=== PATIENT | female | born 1975 | race Asian ===

== ENCOUNTER → 2020-03-25 16:34 | Outpatient (CLI) | payer OTHER, SELFPAY ==
[2020-03-25 17:47] LABS: Influenza A - CEPHEID Flu A NEGATIVE (NEGATIVE); Influenza B - CEPHEID Flu B NEGATIVE (NEGATIVE)
[2020-03-25 18:06] LABS: COVID19 -Nasal RAPID Negative (Negative)
== END ==
PROVIDERS: PCP Registered Nurse Diabetes Educator; Visit Provider Physician Assistant
DX: Z20.822 Contact with and (suspected) exposure to COVID-19 (principal); R53.83 Other fatigue; J02.9 Acute pharyngitis, unspecified; J45.901 Unspecified asthma with (acute) exacerbation
CPT/HCPCS: 87502; 87635

== ENCOUNTER → 2020-05-27 09:43 | Outpatient (CLI) | payer OTHER, SELFPAY ==
--- NOTE | 2020-05-27 10:09 | DI.RAD.S_ITS ---
PROCEDURE: XR CHEST 2V INDICATIONS: sob TECHNIQUE: 2 views of the chest were acquired. COMPARISON: None. FINDINGS: Surgical changes and devices: None. Lungs and pleura: Lungs are clear. No pleural effusions or pneumothorax. Mediastinum: Mediastinal contours are normal. Heart size is normal. Bones and chest wall: No suspicious bony abnormalities. Soft tissues appear unremarkable. IMPRESSION: No acute cardiopulmonary pathology. Dictated by: Giuseppe Merchant M.D. on 05/27/2020 at 10:50 Approved by: Giuseppe Merchant M.D. on 05/27/2020 at 10:51
[2020-05-27 10:16] LABS: Add Manual Diff / Slide Review NO; Basophils Absolute Auto 100 /uL (0-100); Basophils Percent Auto 1.3 % (0-2); Eosinophils Absolute Auto 600 /uL (0-450); Eosinophils Percent Auto 8.5 % (2-4); Hematocrit 43.3 % (36-46); Hemoglobin 14.3 g/dL (12.0-16.0); Lymphocytes Absolute Auto 1600 /uL (1100-4500); Lymphocytes Percent Auto 22.9 % (25-40); Mean Corpuscular HGB Conc 33.1 % (30-36); Mean Corpuscular Hemoglobin 29.8 PG (26-34); Monocytes Absolute Auto 600 /uL (0-900); Monocytes Percent Auto 8.4 % (3-14); Neutrophils Absolute Auto 4100 /uL (1500-7000); Neutrophils Percent Auto 58.9 % (50-75); Platelet Count 325 X10^3/uL (150-400); Red Blood Cell Count 4.82 X10^6/uL (4.0-5.2); Red Cell Distribution Width 13.2 % (11.6-14.8)
[2020-05-27 10:58] LABS: Alanine Aminotransferase 40 IU/L (<35); Albumin 4.5 g/dL (3.5-5.0); Albumin Globulin Ratio 1.4 (1.0-2.8); Alkaline Phosphatase 59 U/L (38-126); Aspartate Aminotransferase 35 IU/L (14-36); BUN Creatinine Ratio 16.9 (6-22); Bilirubin Total 0.2 mg/dL (0.2-1.3); Blood Urea Nitrogen 13 mg/dL (7-17); Calcium 9.9 mg/dL (8.4-10.2); Carbon Dioxide 30 mmol/L (22-32); Chloride 101 mmol/L (98-107); Estimated Glomerular Filt Rate > 60.0 mL/min (>60); Globulin 3.3 g/dL (1.7-4.1); Glucose 115 mg/dL (70-100); HEMOLYSIS < 15 (0-50); Potassium 4.1 mmol/L (3.4-5.1); Sodium 135 mmol/L (137-145); Total Protein 7.8 g/dL (6.3-8.2)
== END ==
LOC: LAB 09:44 → RAD 10:09
PROVIDERS: PCP Registered Nurse Diabetes Educator; Referring Provider Registered Nurse; Visit Provider Registered Nurse
DX: J45.20 Mild intermittent asthma, uncomplicated (principal); R06.02 Shortness of breath
CPT/HCPCS: 36415; 71046; 80053; 85025

== ENCOUNTER → 2020-07-29 07:01 | Outpatient (CLI) | payer OTHER, SELFPAY ==
--- NOTE | 2020-07-29 07:02 | DI.US.S_ITS ---
PROCEDURE: US PELVIC COMPLETE INDICATIONS: PAIN; CHECK IUD PLACEMENT TECHNIQUE: Real-time scanning was performed of the pelvic organs, with image documentation. Additional endovaginal scanning was necessary due to incomplete visualization of the adnexal and endometrial structures by transabdominal scanning. COMPARISON: [facility], US, US PELVIC COMPLETE, 04/17/2020, 8:28. FINDINGS: Uterus: Uterus is retroverted and normal in size at 4.1 x 4.2 x 7.4 cm. The endometrium measures 6.0 mm in combined thickness. A normally positioned IUD is present. Ovaries: There is a 3.1 x 1.5 x 2.1 cm complex ovarian cyst on the right with overall ovarian measurements of 3.9 x 2.2 x 3.4 cm. The left ovary measures 3.0 x 1.5 x 2.2 cm. Other: No pathologic free abdominal or pelvic fluid. IMPRESSION: Centrally positioned IUD within the endometrial canal, source of persistent pain after IUD placement is not found. Currently complex right ovarian cyst measures up to 1.5 x 2.1 x 3.1 cm. This likely represents sequela of hemorrhage into the cyst that was identified on the right and simple in character, smaller in size, on ultrasound from 04/17/20. Follow-up pelvic ultrasound in 6-8 weeks is recommended to establish presence or absence of resolution. Dictated by: Mendel Bautista M.D. on 07/29/2020 at 11:55 Approved by: Mendel Bautista M.D. on 07/29/2020 at 12:00
== END ==
PROVIDERS: PCP Registered Nurse Diabetes Educator; Referring Provider Obstetrics & Gynecology; Visit Provider Obstetrics & Gynecology
DX: R10.2 Pelvic and perineal pain (principal); N83.291 Other ovarian cyst, right side; Z30.431 Encounter for routine checking of intrauterine contraceptive device
CPT/HCPCS: 76830; 76856

== ENCOUNTER → 2020-09-30 11:09 | Outpatient (CLI) | payer OTHER, SELFPAY ==
[2020-09-30 13:11] LABS: COVID-19 CEPHEID PCR (VTM/NP) Negative (Negative)
== END ==
PROVIDERS: PCP Registered Nurse Diabetes Educator; Visit Provider Obstetrics & Gynecology
DX: Z20.822 Contact with and (suspected) exposure to COVID-19 (principal)
CPT/HCPCS: U0003

== ENCOUNTER 2020-10-01 08:59 | Day surgery (SDC) | payer OTHER, SELFPAY ==
[2020-09-26 12:01] VITALS: BMI 27.8
[2020-10-01] VITALS (8 sets, daily range): BP systolic 113–130; BP diastolic 69–86; PULSE 62–77; RESP 12–22; TEMP 36.2–37.3; O2SAT 98–100; BMI 27.8
--- NOTE | 2020-10-01 | PATH_ITS ---
[facility] Accession Number: [id number] . 01 Material submitted: . PART A: fallopian tube - BILATERAL FALLOPIAN TUBES PART B: endometrium - ENDOMETRIAL CURETTINGS . 02 Diagnosis: A. Bilateral Fallopian Tubes, Bilateral Salpingectomy: Complete cross-sections of fallopian tubes x2; negative for atypia or malignancy. . B. Endometrial Curettings: Portions of weakly proliferative endometrium; negative for glandular hyperplasia, cytologic atypia, or malignancy. Pseudodecidualized stromal changes, suggestive of possible exogenous hormone effect. Avulsed portions of squamous mucosa with reactive changes; negative for squamous dysplasia or malignancy. [facility] 10/08/2020 1523 Local . 02 Electronically signed: . Alissa Davis MD, Pathologist NPI- [id number] . 01 Gross description: . A. The specimen is received in formalin and labeled with bilateral fallopian tubes. It consists of a 6.7 cm in length x 0.4 cm in diameter continuous, fimbriated fallopian tube covered in purple-ware diffusely congested serosa. Numerous white-ware nodules are adherent to the serosa ranging from 0.1 to 0.2 cm in greatest dimension. Sectioning the first tube reveals yellow-ware focally hemorrhagic mucosa, a lumen that dilates to 0.1 cm in diameter, and cade that average 0.3 cm in thickness. . Also, received is a fragmented, fimbriated fallopian tube covered in cabrales-ware to purple-ware serosa. Yellow-ware nodules ranging from 0.1 to 0.2 cm are found on the serosa of the second tube. Sectioning the second tube reveals yellow-ware unremarkable mucosa, a pinpoint lumen, and cade that average 0.2 cm in thickness. Physical Education Professor sections are submitted. . Summary of Sections: A1 = First tube fimbria, bisected, two pieces. A2-A3 = First tube, serially sectioned, employee representative, four pieces. A4 = Second tube fimbria, bisected, two pieces. A5 = Second tube, serially sectioned, employee representative, four pieces. . B. Specimen B is received in formalin labeled with endometrial curettings. It consists of a 2.8 x 1.7 x 0.5 cm aggregate of yellow-ware to pink-ware ragged diffusely hemorrhagic soft tissue fragments. No distinguishing features are grossly identified. The specimen is filtered and submitted entirely in a single cassette. . Summary of Sections: B1 = Endometrial curettings, filtered, aggregate. ([id number]) . /[facility] 10/02/2020 [facility] Local . 02 Pathologist provided ICD-10: N85.00 . 02 CPT . 308994, [id number] Performed at: 01 [facility] Cytology [address] [id number] MD Ronnie Samuels MD Phone: [phone] Performed at: 02 [facility] [address] [place] [id number] MD Taryn Andino MD Phone: [phone]
[2020-10-01] MEDS: LACTATED RINGERS 1,000 ML 100 ML IV (09:25)
--- NOTE | 2020-10-01 09:50 | P.HP_ITS ---
History of Present Illness History of Present Illness Date Patient Seen: 10/01/20 Time Patient Seen: 09:51 Chief complaint: SDC Narrative: Patient is a 44-year-old 1 para 0 who presents for a laparoscopic removal of a right ovarian cyst, removal of both tubes, removal of IUD, and endometrial ablation. This is being done due to heavy vaginal bleeding with her menstrual cycle despite the Mirena IUD, blocked fallopian tubes bilaterally, and a right ovarian cyst. Patient History Medical History Acute bronchitis with asthma with acute exacerbation Anorexia nervosa Anxiety Asthma Chicken pox Frequent UTI (~2014) Herpes History of gynecologic disorder (~2009) IUD (intrauterine device) in place Kidney stones (~2017) Mild intermittent asthma Wears contact lenses Surgical History Anesthesia History of appendectomy (~1998) History of surgery (~2009) Family & Social History Family History Father Disease of brain Sister Mental health problem Grandmother Breast cancer Grandmother Cancer Social History: household members spouse Tobacco & Substance use: Tobacco type cigarettes Smoking Status Current every day smoker alcohol intake frequency holiday/special occasion Substance Use Type does not use Meds Home Medications and Allergies Home Medications Medication Instructions Recorded Confirmed Type escitalopram oxalate 20 mg tablet 20 mg PO DAILY #90 tab 04/03/20 10/01/20 Rx omeprazole 20 mg capsule,delayed 20 mg PO DAILY #14 cap 04/03/20 10/01/20 Rx release metronidazole 0.75 % vaginal gel 1 appful VAGINAL DAILY 5 Days #70 g 05/15/20 10/01/20 Rx (Metrogel Vaginal) albuterol sulfate 90 mcg/actuation 2 puff INHALATION Q4-6H PRN #18 g 05/27/20 10/01/20 Rx aerosol inhaler fluticasone propionate 100 1 inh INHALATION BID #60 ea 05/27/20 10/01/20 Rx mcg/actuation blister powder for inhalation (Flovent Diskus) montelukast 10 mg tablet 10 mg PO DAILY #30 tab 05/27/20 10/01/20 Rx (Singulair) loratadine 10 mg tablet 10 mg PO DAILY PRN #30 tab 07/30/20 10/01/20 Rx Allergies Allergy/AdvReac Type Severity Reaction Status Date / Time house dust Allergy Severe runny nose Verified 10/01/20 09:30 itchy/scratchy eyes, asthmatic Exam Vital Signs (past 8 hours): - 10/01/20 09:18 Temperature 97.1 F L Pulse Rate 76 Respiratory Rate 20 Blood Pressure 122/86 Pulse Oximetry 100 Oxygen Delivery Method Room Air Narrative Exam Narrative: HEENT: No thyromegaly, no anterior cervical or supraclavicular lymphadenopathy. Lungs:Clear to auscultation bilaterally, no wheezes. Cardiovascular: Regular rate and rhythm, no murmurs, rubs, or gallops. Abdomen: Well-healed laparoscopy scars. No hepatosplenomegaly. No masses palpable. External genitalia: Normal Vagina: Normal Cervix: Nulliparous. IUD string visible Bimanual exam: 6 Week size anteverted uterus. Mobile. No adnexal masses or t enderness appreciated. Assessment & Plan Assessment & Plan narrative: Assessment: 44-year-old 1 para 0 with a right ovarian cyst, blocked fallopian tubes bilaterally, Mirena IUD in place, menorrhagia Plan: Laparoscopic removal of right ovarian cyst, bilateral salpingectomy, removal of Mirena IUD, and endometrial ablation The risks, benefits, and alternatives to the procedure were explained to the patient. The risks including bleeding, infection, injury to the bowel, bladder, or ureters, or uterine perforation. She understands these risks and agrees to proceed. A full par Q was held and consent form was signed. COVID-19 COVID-19 status: Negative Result date/Date tested (Pos, Neg/Pending): 09/30/20 Time Spent With Patient Time with patient: 15-24 minutes
--- NOTE | 2020-10-01 09:54 | PM.PREOP ---
Pre-operative Note COVID-19 COVID-19 status: Negative Result date/Date tested (Pos, Neg/Pending): 09/30/20 Interval Note History & Physical reviewed/Exam performed by Physician: Yes Changes to H&P: No H&P completed within 30 days and has changed as indicated here:: 10/01/20
--- NOTE | 2020-10-01 10:28 | SUR.OPER ---
Lithotomy on padded OR bed, head on pillow, arms padded and tucked. Legs secured in padded yellow fins stirrups.
[2020-10-01] MEDS: ACETAMINOPHEN IV 1,000 MG/100 ML VIAL 400 MG IV (10:55)
[2020-10-01] MEDS: EPINEPHrine 1 MG/ML 0.15 MG INJ (11:25)
[2020-10-01] MEDS: BUPIVACAINE 0.5% (PF) VIAL 30 ML INJ (11:25)
--- NOTE | 2020-10-01 12:22 | P.OP_ITS ---
Operative Date/Time/Diagnoses Date of procedure: 10/01/20 Time of procedure: 12:22 Pre-op diagnosis: Ovarian cyst Menorrhagia Fallopian tubes blocked Mirena IUD in place Post-op diagnosis: same Procedure & Clinicians Procedure: Procedures Operation Date: 10/01/20 10:15 Actual Procedure Side Surgeon p Laparoscopic excision of right ovarian cyst, bilateral salpingectomy, IUD removal & endometrial ablation Not Applicable Cori Headley MD Indications: Menorrhagia Fallopian tubes blocked Ovarian cyst Mirena IUD in place Surgeon: Cori Headley Anesthesia Type: General and Local Operative Notes Findings: 6 week size anteverted uterus Evidence adhesions around the uterus and liver to the diaphragm 3 cm left ovarian cyst Clubbing of the fallopian tubes bilaterally Normal gallbladder Appendix previously removed Closure Type: primary Specimen(s): endometrial curettings Estimated blood loss (mL): 5 Blood products transfused: none Procedure in detail: After informed consent was obtained, the patient was taken to the operating room where she was placed in the dorsal supine position. After adequate general endotracheal anesthesia was achieved, she was placed in the dorsal lithotomy position, and prepped and draped in the usual sterile fashion. A time-out was performed. A bivalve speculum was placed into the vagina and the anterior lip of the cervix was grasped with a single-tooth tenaculum. In the Mirena IUD strings were visualized and the IUD was removed without difficulty. The cervical os was sequentially dilated until the Zumi uterine manipulator could pass easily into the endometrial cavity. The single-tooth tenaculum was removed from the anterior lip of the cervix. The bivalve speculum was removed from the vagina. Attention was then turned to the abdomen where 6 cc of 0.5% Marcaine with epinephrine were injected in the umbilical fold. A 5 mm incision was made. The Veress needle was placed into the peritoneal cavity, and its placement confirmed by aspiration and drop test. The abdominal cavity was insufflated with 3.6 L of CO2. The Veress needle was removed, and a 5 mm trocar was placed without difficulty. Initial inspection of the pelvis and abdomen revealed the findings noted above. Two other incisions were made 4 cm lateral to the midline after 6 cc of 0.5% Marcaine with epinephrine were injected. Two 5 mm trocars were placed under direct visualization. The right tube was grasped with an atraumatic grasper. Using the PlasmaKinetic with settings at 40 w, the mesosalpinx was cauterized and cut all the way down to the cornua of the uterus. The tube was amputated at the cornua. The tube was removed through the 5 mm trocar. This was repeated on the patient's left tube. There was a simple cyst on the left ovary and this was cauterized to open it and drain it. Cautery was applied for hemostasis. The liver was found to have some adhesions between the liver and diaphragm consistent with a prior infection. The instruments were removed from the abdomen. The CO2 was allowed to escape. The incisions were repaired with 4 0 Biosyn in a subcuticular fashion. Steri-Strips and Allevyn dressings were placed. Attention was then turned to the vagina where the Zumi uterine manipulator was removed from the uterus. A bivalve speculum was placed into the vagina. A single-tooth tenaculum was placed on the anterior lip of the cervix. The cervix was dilated to the # 9 Hegar dilator. Sharp curettage was performed yielding a moderate amount of endometrial curettings. The uterus was measured from the internal os to the fundus and measured 4 cm. This was set on the catheter and the NovaSure generator. NovaSure catheter passed easily into the endometrial cavity and was opened. The with of the uterus was 2.5 cm. This indicated a power of 55 w. The cervix was capped, the cavity assessment was performed and passed. The cycle was initiated and lasted 100 seconds. At the completion of the cycle the NovaSure catheter was closed, the cervix was signed capped, and the catheter was removed from the uterus. The single-tooth tenaculum was removed from the anterior lip of the cervix. The [place] speculum was removed from the vagina. Sponge, lap, and instrument counts were correct x2. The patient tolerated the procedure well, and was taken to PACU in stable condition. Complications: none Post-operative Condition: stable Disposition: PACU Plan for aftercare: Home after recovery
[2020-10-01] MEDS: OXYCODONE IR 5 MG TABLET PO (12:25)
--- NOTE | 2020-10-01 13:57 | SUR.PHASEII ---
Late entry: Pt ready to go, ride called, pt left when ready and left in stable condition.
== END 2020-10-01 13:00 | disposition home or self-care (01) ==
PROVIDERS: PCP Registered Nurse Diabetes Educator; Referring Provider Obstetrics & Gynecology; Visit Provider Obstetrics & Gynecology
PROC: (CPT 58661; principal; 2020-10-01 10:15)
DX: N92.0 Excessive and frequent menstruation with regular cycle (principal); N83.292 Other ovarian cyst, left side; Z30.432 Encounter for removal of intrauterine contraceptive device; N73.6 Female pelvic peritoneal adhesions (postinfective); N97.1 Female infertility of tubal origin; J45.20 Mild intermittent asthma, uncomplicated; F32.9 Major depressive disorder, single episode, unspecified; F41.9 Anxiety disorder, unspecified
CPT/HCPCS: 58661; 58301; 58353; 58662; 81025; J0131; J0171; J0330; J1100; J1885; J2250; J2405; J2704; J3010

== ENCOUNTER → 2021-01-30 11:30 | Outpatient (CLI) | payer OTHER, SELFPAY | PROVIDERS: PCP Registered Nurse Diabetes Educator; Referring Provider Family Medicine; Visit Provider Family Medicine | DX: R10.13 Epigastric pain (principal) | CPT/HCPCS: 36415; 86677 ==

== ENCOUNTER → 2021-07-07 09:31 | Outpatient (CLI) | payer OTHER, SELFPAY ==
[2021-07-07 12:06] LABS: Hematocrit 40.9 % (36-46); Mean Corpuscular HGB Conc 34.2 % (30-36); Mean Corpuscular Hemoglobin 30.4 PG (26-34); Platelet Count 309 X10^3/uL (150-400); Red Cell Distribution Width 13.6 % (11.6-14.8); White Blood Cell Count 7.1 X10^3/uL (4.5-11.0)
[2021-07-07 12:20] LABS: Alanine Aminotransferase 20 IU/L (<35); Albumin 4.3 g/dL (3.5-5.0); Albumin Globulin Ratio 1.4 (1.0-2.8); Alkaline Phosphatase 63 U/L (38-126); Aspartate Aminotransferase 26 IU/L (14-36); BUN Creatinine Ratio 10.4 (6-22); Bilirubin Total 0.3 mg/dL (0.2-1.3); Blood Urea Nitrogen 8 mg/dL (7-17); Calcium 9.4 mg/dL (8.4-10.2); Carbon Dioxide 28 mmol/L (22-32); Chloride 104 mmol/L (98-107); Cholesterol 271 mg/dL (140-199); Estimated Glomerular Filt Rate > 60 mL/min (>60); Glucose 97 mg/dL (70-100); HDL Cholesterol 62 mg/dL (40-60); HEMOLYSIS < 15 (0-50); LDL Cholesterol Calculated 170 mg/dL (<100); Potassium 4.5 mmol/L (3.4-5.1); Sodium 138 mmol/L (137-145); Total Protein 7.3 g/dL (6.3-8.2); Triglycerides 193 mg/dL (35-150)
[2021-07-07 12:48] LABS: TSH w/ Reflex to FT4 0.69 uIU/mL (0.47-4.68)
== END ==
PROVIDERS: PCP Registered Nurse Diabetes Educator; Referring Provider Registered Nurse Diabetes Educator; Visit Provider Registered Nurse Diabetes Educator
DX: Z00.00 Encounter for general adult medical examination without abnormal findings (principal)
CPT/HCPCS: 36415; 80053; 80061; 84443; 85027

== ENCOUNTER → 2022-05-14 07:39 | Outpatient (CLI) | payer OTHER, SELFPAY ==
[2022-05-14 08:11] LABS: Hematocrit 44.2 % (36-46); Hemoglobin 14.6 g/dL (12.0-16.0); Mean Corpuscular Hemoglobin 30.2 PG (26-34); Mean Corpuscular Volume 91.6 fL (80-100); Platelet Count 363 X10^3/uL (150-400); Red Blood Cell Count 4.82 X10^6/uL (4.0-5.2); Red Cell Distribution Width 13.2 % (11.6-14.8); White Blood Cell Count 7.9 X10^3/uL (4.5-11.0)
[2022-05-14 08:43] LABS: Alanine Aminotransferase 32 IU/L (<35); Albumin 4.4 g/dL (3.5-5.0); Albumin Globulin Ratio 1.3 (1.0-2.8); Alkaline Phosphatase 72 U/L (38-126); Aspartate Aminotransferase 27 IU/L (14-36); BUN Creatinine Ratio 13.5 (6-22); Bilirubin Total 0.5 mg/dL (0.2-1.3); Blood Urea Nitrogen 10 mg/dL (7-17); Calcium 9.5 mg/dL (8.4-10.2); Carbon Dioxide 23 mmol/L (22-32); Chloride 101 mmol/L (98-107); Estimated Glomerular Filt Rate > 60 mL/min (>60); Globulin 3.3 g/dL (1.7-4.1); Glucose 103 mg/dL (70-100); HDL Cholesterol 63 mg/dL (40-60); HEMOLYSIS < 15 (0-50); Potassium 4.4 mmol/L (3.4-5.1); Sodium 134 mmol/L (137-145); Total Protein 7.7 g/dL (6.3-8.2); Triglycerides 214 mg/dL (35-150)
[2022-05-14 08:52] LABS: Cholesterol 370 mg/dL (140-199); LDL Cholesterol Calculated 264 mg/dL (<100)
[2022-05-14 09:16] LABS: Testosterone 44.2 ng/dL (5.71-77.0)
[2022-05-14 10:12] LABS: Follicle Stimulating Hormone 8.34 mIU/mL
[2022-05-14 10:28] LABS: Estradiol, Total 95.3 pg/mL
== END ==
PROVIDERS: PCP Registered Nurse Diabetes Educator; Referring Provider Registered Nurse Diabetes Educator; Visit Provider Registered Nurse Diabetes Educator
DX: E78.5 Hyperlipidemia, unspecified (principal); L68.0 Hirsutism; N91.2 Amenorrhea, unspecified
CPT/HCPCS: 36415; 80053; 80061; 82670; 83001; 84403; 84443; 85027

== ENCOUNTER → 2022-06-18 15:23 | Outpatient (CLI) | payer OTHER, SELFPAY ==
--- NOTE | 2022-06-18 15:24 | DI.MRI.S_ITS ---
PROCEDURE: MR HEAD/BRAIN WO CON INDICATIONS: Increased frequency of headache TECHNIQUE: Noncontrast axial T1 spin echo, axial T2 fast spin echo, sagittal and axial FLAIR, coronal T2 fast spin echo, axial gradient echo, axial diffusion and ADC through the brain. COMPARISON: None. FINDINGS: Image quality: Excellent. CSF Spaces: Basal cisterns are patent. No extra-axial fluid collections. Ventricles are normal in size and shape. Brain: No intracranial masses or hemorrhage. [place]/white matter interface is normal. Brainstem appears normal. Diffusion-weighted images demonstrate no acute ischemic insult. No chronic ischemic insults. Normal intravascular flow voids are present. Skull and face: Calvarium has normal marrow signal. Orbits appear normal. Sinuses: Sinuses and mastoids are clear. IMPRESSION: 1. No acute intracranial process. Dictated by: Stephanie Burt M.D. on 06/19/2022 at 8:06 Approved by: Stephanie Burt M.D. on 06/19/2022 at 8:07
== END ==
PROVIDERS: PCP Registered Nurse Diabetes Educator; Referring Provider Registered Nurse Diabetes Educator; Visit Provider Registered Nurse Diabetes Educator
DX: R51.9 Headache, unspecified (principal)
CPT/HCPCS: 70551

== ENCOUNTER → 2022-09-15 14:46 | Outpatient (CLI) | payer OTHER, SELFPAY ==
--- NOTE | 2022-09-15 14:47 | DI.MG.S_ITS ---
BILATERAL DIGITAL SCREENING MAMMOGRAM 3D/2D WITH CAD: 09/15/2022 CLINICAL: Routine screening. Baseline by default. Family history of breast cancer. No prior exams were available for comparison. Both breasts are heterogeneously dense, which may obscure small masses (category c / 51-75% glandular tissue). Current study was also evaluated with a Computer Aided Detection (CAD) system. There is an oval asymmetry in the right breast posterior depth lateral region seen on the craniocaudal view only. There is a cluster of focal asymmetries in the left breast at 11 o'clock posterior depth. No other significant masses or calcifications are seen in either breast. IMPRESSION: INCOMPLETE: NEEDS ADDITIONAL IMAGING EVALUATION The oval asymmetry in the right breast posterior depth lateral region seen on the craniocaudal view only is indeterminate. Additional views with possible ultrasound are recommended. The cluster of focal asymmetries in the left breast at 11 o'clock posterior depth is indeterminate. Additional views with possible ultrasound are recommended. Based on the Tyrer Cuzick model (a risk assessment model) the patient's lifetime risk is 15.1% and her 10 year risk is 2.6%. According to the ACR, ACS, and NCCN guidelines, an annual breast MRI exam along with mammogram is recommended if the patient's lifetime risk is 20% or greater. This exam was interpreted at Station ID: [id number]. NOTE: For mammograms, a report in lay terms will be sent to the patient. Approximately 15% of breast malignancies will not be visualized mammographically. In the management of a palpable breast mass, a negative mammogram must not discourage biopsy of a clinically suspicious lesion. Electronically Signed By: Abebe Benitez M.D. lc/:09/16/2022 09:36:49 letter sent: Additional Imaging Needed ACR BI-RADS Category 0: Incomplete 3340F
== END ==
PROVIDERS: PCP Registered Nurse Diabetes Educator; Referring Provider Registered Nurse Diabetes Educator; Visit Provider Registered Nurse Diabetes Educator
DX: Z12.31 Encounter for screening mammogram for malignant neoplasm of breast (principal); Z80.3 Family history of malignant neoplasm of breast
CPT/HCPCS: 77063; 77067

== ENCOUNTER → 2022-09-24 09:02 | Outpatient (CLI) | payer OTHER, SELFPAY ==
[2022-09-24 10:36] LABS: Cholesterol 246 mg/dL (140-199); Glucose 97 mg/dL (70-100); HDL Cholesterol 85 mg/dL (40-60); LDL Cholesterol Calculated 136 mg/dL (<100); Triglycerides 126 mg/dL (35-150)
== END ==
PROVIDERS: PCP Registered Nurse Diabetes Educator; Referring Provider Registered Nurse Diabetes Educator; Visit Provider Registered Nurse Diabetes Educator
DX: E78.5 Hyperlipidemia, unspecified (principal); R73.01 Impaired fasting glucose
CPT/HCPCS: 36415; 80061; 82947

== ENCOUNTER → 2022-10-01 11:28 | Outpatient (CLI) | payer OTHER, SELFPAY ==
--- NOTE | 2022-10-01 11:28 | DI.MG.S_ITS ---
BILATERAL DIGITAL DIAGNOSTIC MAMMOGRAM 3D/2D: 10/01/2022 CLINICAL: Additional evaluation requested from prior study. Comparison is made to exam dated: 09/15/2022 mammogram - [facility]. Both breasts are heterogeneously dense, which may obscure small masses (category c / 51-75% glandular tissue). The benign oval asymmetry in the right breast posterior depth lateral region seen on the craniocaudal view only is no longer seen. This is not seen in additional views. The benign cluster of focal asymmetries in the left breast at 11 o'clock posterior depth is no longer seen. This is not seen in additional views. No other significant masses or calcifications are seen in either breast. IMPRESSION: BENIGN There is no mammographic evidence of malignancy. Return to annual mammogram screening schedule is recommended. Based on the Tyrer Cuzick model (a risk assessment model) the patient's lifetime risk is 16.4% and her 10 year risk is 2.9%. According to the ACR, ACS, and NCCN guidelines, an annual breast MRI exam along with mammogram is recommended if the patient's lifetime risk is 20% or greater. This exam was interpreted at Station ID: [id number]. NOTE: For mammograms, a report in lay terms will be sent to the patient. Approximately 15% of breast malignancies will not be visualized mammographically. In the management of a palpable breast mass, a negative mammogram must not discourage biopsy of a clinically suspicious lesion. Electronically Signed By: Facundo Owens M.D. acr/:10/01/2022 12:08:49 letter sent: Normal Exam ACR BI-RADS Category 2: Benign Finding(s) 3342F
== END ==
PROVIDERS: PCP Registered Nurse Diabetes Educator; Referring Provider Registered Nurse Diabetes Educator; Visit Provider Registered Nurse Diabetes Educator
DX: R92.8 Other abnormal and inconclusive findings on diagnostic imaging of breast (principal)
CPT/HCPCS: 77066; G0279

== ENCOUNTER → 2023-05-26 07:35 | Outpatient (CLI) | payer OTHER, SELFPAY ==
[2023-05-26 08:07] LABS: Hematocrit 40.5 % (36-46); Hemoglobin 13.7 g/dL (12.0-16.0); Mean Corpuscular HGB Conc 33.8 % (30-36); Mean Corpuscular Hemoglobin 30.9 PG (26-34); Mean Corpuscular Volume 91.3 fL (80-100); Platelet Count 296 X10^3/uL (150-400); Red Blood Cell Count 4.43 X10^6/uL (4.0-5.2); White Blood Cell Count 5.3 X10^3/uL (4.5-11.0)
[2023-05-26 08:26] LABS: Alanine Aminotransferase 16 IU/L (<35); Albumin Globulin Ratio 1.3 (1.0-2.8); Alkaline Phosphatase 52 U/L (38-126); Aspartate Aminotransferase 24 IU/L (14-36); BUN Creatinine Ratio 14.8 (6-22); Bilirubin Total 0.6 mg/dL (0.2-1.3); Blood Urea Nitrogen 12 mg/dL (7-17); Calcium 9.2 mg/dL (8.4-10.2); Carbon Dioxide 32 mmol/L (22-32); Chloride 106 mmol/L (98-107); Cholesterol 254 mg/dL (140-199); Estimated Glomerular Filt Rate > 60 mL/min (>60); Globulin 3.1 g/dL (1.7-4.1); Glucose 93 mg/dL (70-100); HDL Cholesterol 66 mg/dL (40-60); HEMOLYSIS < 15 (0-50); LDL Cholesterol Calculated 171 mg/dL (<100); Potassium 4.4 mmol/L (3.4-5.1); Sodium 138 mmol/L (137-145); Total Protein 7.1 g/dL (6.3-8.2); Triglycerides 85 mg/dL (35-150)
[2023-05-26 08:43] LABS: Follicle Stimulating Hormone 9.04 mIU/mL; Vitamin D 25 Hydroxy (D3) 48.6 ng/mL (30.0-100.0)
[2023-05-26 08:59] LABS: Thyroid Stimulating Hormone 2.22 uIU/mL (0.47-4.68)
[2023-05-26 09:31] LABS: Folate 13.3 ng/mL (2.76-20.0); Vitamin B12 Reflex MMA if <400 > 1000 pg/mL (239-931)
== END ==
PROVIDERS: PCP Registered Nurse Diabetes Educator; Referring Provider Registered Nurse Diabetes Educator; Visit Provider Registered Nurse Diabetes Educator
DX: Z00.00 Encounter for general adult medical examination without abnormal findings (principal); E78.5 Hyperlipidemia, unspecified; N91.2 Amenorrhea, unspecified; Z98.890 Other specified postprocedural states; F41.9 Anxiety disorder, unspecified; F43.23 Adjustment disorder with mixed anxiety and depressed mood
CPT/HCPCS: 36415; 80053; 80061; 82306; 82607; 82670; 82746; 83001; 84439; 84443; 85027

== ENCOUNTER → 2023-10-27 16:53 | Outpatient (CLI) | payer OTHER, SELFPAY ==
--- NOTE | 2023-10-27 16:54 | DI.MG.S_ITS ---
BILATERAL DIGITAL SCREENING MAMMOGRAM 3D/2D WITH CAD: 10/27/2023 CLINICAL: Routine screening. Family history of breast cancer. Comparison is made to exams dated: 10/01/2022 mammogram, 09/15/2022 mammogram - [facility], and 01/03/2018 mammogram - outside facility. Both breasts are heterogeneously dense, which may obscure small masses (category c / 51-75% glandular tissue). Current study was also evaluated with a Computer Aided Detection (CAD) system. There is a possible 0.4 cm oval equal density asymmetry in the left breast posterior depth superior region seen on the mediolateral oblique view only. No other significant masses, calcifications, or other findings are seen in either breast. There has been no significant interval change. IMPRESSION: INCOMPLETE: NEEDS ADDITIONAL IMAGING EVALUATION The possible 0.4 cm oval equal density asymmetry in the left breast is indeterminate. Additional views with possible ultrasound are recommended. Based on the Tyrer Cuzick model (a risk assessment model) the patient's lifetime risk is 16.5% and her 10 year risk is 3.2%. According to the ACR, ACS, and NCCN guidelines, an annual breast MRI exam along with mammogram is recommended if the patient's lifetime risk is 20% or greater. This exam was interpreted at Station ID: [id number]. NOTE: For mammograms, a report in lay terms will be sent to the patient. Approximately 15% of breast malignancies will not be visualized mammographically. In the management of a palpable breast mass, a negative mammogram must not discourage biopsy of a clinically suspicious lesion. Electronically Signed By: Frankie lozano/[place]land:10/28/2023 13:04:25 letter sent: Additional Imaging Needed ACR BI-RADS Category 0: Incomplete 3340F
== END ==
PROVIDERS: PCP Registered Nurse Diabetes Educator; Referring Provider Registered Nurse Diabetes Educator; Visit Provider Registered Nurse Diabetes Educator
DX: Z12.31 Encounter for screening mammogram for malignant neoplasm of breast (principal); Z80.3 Family history of malignant neoplasm of breast; R92.333 Mammographic heterogeneous density, bilateral breasts
CPT/HCPCS: 77063; 77067

== ENCOUNTER → 2023-11-15 09:35 | Outpatient (CLI) | payer OTHER, SELFPAY ==
--- NOTE | 2023-11-15 09:36 | DI.MG.S_ITS ---
UNILATERAL LEFT DIGITAL DIAGNOSTIC MAMMOGRAM 3D/2D WITH ADDITIONAL VIEWS: 11/15/2023 CLINICAL: Additional evaluation requested from prior study. Comparison is made to exams dated: 10/01/2022 mammogram, 10/27/2023 mammogram, 09/15/2022 mammogram - [facility], and 01/03/2018 mammogram - outside facility. The left breast is heterogeneously dense, which may obscure small masses (category c / 51-75% glandular tissue). There is an asymmetry in the left breast posterior depth superior region seen on the mediolateral oblique view only. This is not seen in additional views. No other significant masses or calcifications are seen in the breast. IMPRESSION: INCOMPLETE: NEEDS ADDITIONAL IMAGING EVALUATION The asymmetry in the left breast is indeterminate. An ultrasound is recommended. Based on the Tyrer Cuzick model (a risk assessment model) the patient's lifetime risk is 16.5% and her 10 year risk is 3.2%. According to the ACR, ACS, and NCCN guidelines, an annual breast MRI exam along with mammogram is recommended if the patient's lifetime risk is 20% or greater. This exam was interpreted at Station ID: [id number]. NOTE: For mammograms, a report in lay terms will be sent to the patient. Approximately 15% of breast malignancies will not be visualized mammographically. In the management of a palpable breast mass, a negative mammogram must not discourage biopsy of a clinically suspicious lesion. Electronically Signed By: Abebe mcintyre/[place]land:11/15/2023 11:03:30 ACR BI-RADS Category 0: Incomplete 3340F
--- NOTE | 2023-11-15 09:36 | DI.US.S_ITS ---
LIMITED ULTRASOUND OF LEFT BREAST AND AXILLA: 11/15/2023 CLINICAL: Patient returns today to evaluate a focal asymmetry in the left breast. Comparison is made to exams dated: 11/15/2023 mammogram, 10/01/2022 mammogram, 09/15/2022 mammogram - [facility], and 01/03/2018 mammogram - outside facility. Color flow and real-time ultrasound of the left breast 1 o'clock, and axilla regions were performed. [place] scale images of the real-time examination were reviewed. There is a possible 0.6 cm x 0.5 cm x 0.3 cm complicated cyst in the left breast at 1 o'clock middle depth 3 cm from the nipple. This correlates as a probably incidental finding. No definite correlate to the mammographic callback finding. IMPRESSION: PROBABLY BENIGN The possible 0.6 cm x 0.5 cm x 0.3 cm complicated cyst in the left breast is probably benign. This correlates as a probably incidental finding. No definite correlate to the mammographic callback finding. 6 month mammogram and ultrasound recommended. This exam was interpreted at Station ID: [id number]. Electronically Signed By: Abebe Benitez M.D. lc/:11/15/2023 11:08:34 Ultrasound BI-RADS: 3 Probably benign
== END ==
PROVIDERS: PCP Registered Nurse Diabetes Educator; Referring Provider Registered Nurse Diabetes Educator; Visit Provider Registered Nurse Diabetes Educator
DX: R92.8 Other abnormal and inconclusive findings on diagnostic imaging of breast (principal); N60.02 Solitary cyst of left breast; R92.332 Mammographic heterogeneous density, left breast; Z91.018 Allergy to other foods; L27.2 Dermatitis due to ingested food
CPT/HCPCS: 36415; 76642; 77065; 86003; G0279

== ENCOUNTER → 2024-05-02 09:10 | Outpatient (CLI) | payer OTHER, SELFPAY ==
[2024-05-02 09:52] LABS: Hematocrit 41.5 % (36-46); Hemoglobin 13.8 g/dL (12.0-16.0); Mean Corpuscular HGB Conc 33.3 % (30-36); Mean Corpuscular Hemoglobin 30.5 PG (26-34); Mean Corpuscular Volume 91.5 fL (80-100); Platelet Count 320 X10^3/uL (150-400); Red Blood Cell Count 4.54 X10^6/uL (4.0-5.2); Red Cell Distribution Width 13.7 % (11.6-14.8); White Blood Cell Count 7.1 X10^3/uL (4.5-11.0)
[2024-05-02 10:36] LABS: Alanine Aminotransferase 30 IU/L (<35); Albumin 4.6 g/dL (3.5-5.0); Albumin Globulin Ratio 1.5 (1.0-2.8); Alkaline Phosphatase 63 U/L (38-126); Aspartate Aminotransferase 32 IU/L (14-36); BUN Creatinine Ratio 15.2 (6-22); Bilirubin Total 0.5 mg/dL (0.2-1.3); Blood Urea Nitrogen 14 mg/dL (7-17); Calcium 9.7 mg/dL (8.4-10.2); Carbon Dioxide 29 mmol/L (22-32); Chloride 101 mmol/L (98-107); Estimated Glomerular Filt Rate > 60 mL/min (>60); Globulin 3.1 g/dL (1.7-4.1); Glucose 99 mg/dL (70-100); HDL Cholesterol 80 mg/dL (40-60); HEMOLYSIS < 15 (0-50); Potassium 4.6 mmol/L (3.4-5.1); Sodium 136 mmol/L (137-145); Total Protein 7.7 g/dL (6.3-8.2); Triglycerides 137 mg/dL (35-150)
[2024-05-02 10:44] LABS: Cholesterol 357 mg/dL (140-199); LDL Cholesterol Calculated 250 mg/dL (<100)
[2024-05-02 11:07] LABS: TSH w/ Reflex to FT4 1.86 uIU/mL (0.47-4.68)
== END ==
PROVIDERS: PCP Registered Nurse Diabetes Educator; Referring Provider Registered Nurse Diabetes Educator; Visit Provider Registered Nurse Diabetes Educator
DX: E78.5 Hyperlipidemia, unspecified (principal)
CPT/HCPCS: 36415; 80053; 80061; 84443; 85027

== ENCOUNTER → 2024-06-15 10:07 | Outpatient (CLI) | payer OTHER, SELFPAY ==
--- NOTE | 2024-06-15 10:08 | DI.US.S_ITS ---
MM diagnostic mammo unilat LT, US breast LT limited: 06/15/2024 BI-RADS: 3 CLINICAL: 48-year old female for left diagnostic mammogram and left diagnostic breast ultrasound. The patient presents for short interval follow-up. Tyrer-Cuzick lifetime risk of 16.4%. No personal or first-degree family history of breast cancer. Current reported family history of breast cancer: maternal grandmother. PRIOR EXAMS 11/15/2023, 10/27/2023, 10/01/2022, 09/15/2022. MAMMOGRAPHY TECHNIQUE: 2D and 3D (tomosynthesis) digital mammographic views obtained, with additional images as needed for full coverage. Current study was also evaluated with a Computer Aided Detection (CAD) system. ULTRASOUND TECHNIQUE Real-time cabrales scale and color doppler imaging of the area of clinical interest was performed with image documentation. TARGETED Left Breast Ultrasound: Real-time ultrasound exam was performed focused to area of clinical and/or imaging concern. DENSITY Left: C. The breasts are heterogeneously dense, which may obscure small masses. MAMMOGRAPHY FINDINGS Left: No suspicious mass, asymmetry, microcalcification, or other abnormality seen. Previously seen oval asymmetry in the superior left breast at posterior depth is no longer visualized on the present examination. ULTRASOUND FINDINGS Left: Upper Outer at 1:00, 3 cm from nipple, measuring 0.5 x 0.3 x 0.5 cm: There is a complicated cyst present. This may represent a new finding given slightly different depth compared to ultrasound 11/15/2023. Left: Outer at 2:00, 2 cm from nipple, measuring 0.2 x 0.2 x 0.1 cm: There is a complicated cyst present. This may correlate to the previously described complicated cyst at 1:00, 3 cm from the nipple (given depth and tissue architecture surrounding the finding). IMPRESSION: Left (Complicated Cyst): Upper Outer at 1:00, 3 cm from nipple, measuring 0.5 x 0.3 x 0.5 cm * Probably Benign. Left (Complicated Cyst): Outer at 2:00, 2 cm from nipple, measuring 0.2 x 0.2 x 0.1 cm * Probably Benign. RECOMMENDATIONS Left: Upper Outer at 1:00, 3 cm from nipple * Six month followup with diagnostic ultrasound. Left: Outer at 2:00, 2 cm from nipple * Six month followup with diagnostic ultrasound. Bilateral * Annual screening mammography in six months. OVERALL ASSESSMENT CATEGORY BI-RADS-3: Probably Benign. ELECTRONICALLY SIGNED: Oralia Rodrigez M.D. on 06/15/2024 at 12:21:00 PM PT Interpreting Station ID: [id number]
== END ==
PROVIDERS: PCP Registered Nurse Diabetes Educator; Referring Provider Registered Nurse Diabetes Educator; Visit Provider Registered Nurse Diabetes Educator
DX: R92.8 Other abnormal and inconclusive findings on diagnostic imaging of breast (principal); N64.89 Other specified disorders of breast; N60.02 Solitary cyst of left breast; R92.332 Mammographic heterogeneous density, left breast; Z80.3 Family history of malignant neoplasm of breast
CPT/HCPCS: 76642; 77065; G0279

== ENCOUNTER → 2024-12-14 08:43 | Outpatient (CLI) | payer OTHER, SELFPAY ==
--- NOTE | 2024-12-14 08:44 | DI.MG.S_ITS ---
US breast LT limited, MM diagnostic mammo BI: 12/14/2024 BI-RADS: 2 CLINICAL: 49-year old female for bilateral diagnostic mammogram and left diagnostic breast ultrasound. The patient presents for a follow-up. Tyrer-Cuzick lifetime risk of 16.5%. No personal or first-degree family history of breast cancer. Current reported family history of breast cancer: maternal grandmother. PRIOR EXAMS 06/15/2024, 11/15/2023, 10/27/2023, 10/01/2022, 09/15/2022. MAMMOGRAPHY TECHNIQUE: 2D and 3D (tomosynthesis) digital mammographic views obtained, with additional images as needed for full coverage. Current study was also evaluated with a Computer Aided Detection (CAD) system. ULTRASOUND TECHNIQUE: Real-time cabrales scale and color doppler imaging of the area of clinical interest was performed with image documentation. TARGETED Left Breast Ultrasound: Real-time ultrasound exam was performed focused to area of clinical and/or imaging concern. DENSITY C. The breasts are heterogeneously dense, which may obscure small masses. MAMMOGRAPHY FINDINGS Bilateral: No suspicious mass, asymmetry, microcalcification, or other abnormality seen. ULTRASOUND FINDINGS Left: Upper Outer at 1:00, 3 cm from nipple, measuring 0.4 x 0.3 x 0.3 cm - previously measuring (06/15/2024) 0.5 x 0.3 x 0.5 cm: Correlating with prior imaging concern, there are clustered microcysts that have decreased in size. Left: Outer at 2:00, 2 cm from nipple: The previously seen cyst is no longer visualized. No suspicious sonographic finding present. IMPRESSION: Right * No evidence of malignancy. Left * No evidence of malignancy with benign findings. RECOMMENDATIONS Bilateral * Annual screening mammography. COMMENTS: Findings and recommendations were conveyed to the patient during today's evaluation. OVERALL ASSESSMENT CATEGORY BI-RADS-2: Benign. The [employer] recommends annual screening mammography beginning at age 40 for women with average risk of breast cancer. ELECTRONICALLY SIGNED: Oralia Rodrigez M.D. on 12/14/2024 at 09:50:37 AM PT Interpreting Station ID: [id number]
== END ==
LOC: MAMMO 08:44
PROVIDERS: PCP Registered Nurse Diabetes Educator; Referring Provider Registered Nurse Diabetes Educator; Visit Provider Registered Nurse Diabetes Educator
DX: N60.09 Solitary cyst of unspecified breast (principal); Z80.3 Family history of malignant neoplasm of breast; R92.333 Mammographic heterogeneous density, bilateral breasts
CPT/HCPCS: 76642; 77066; G0279